=== PATIENT | female | born 1985 | race Caucasian/White ===

== ENCOUNTER 2020-02-11 13:47 | Emergency (ER) | payer OTHER ==
[~2020-02-11] VITALS: Ht 165.1 cm; Wt 64.0 kg
[2020-02-11] MEDS ORDERED: INHALER IH (13:52)
[2020-02-11] MEDS ORDERED: NORE1TAB4 PO (13:52)
[2020-02-11] MEDS ORDERED: HYDROCODONE/ACETAMINOPHEN 5-325 MG TABLET PO ONE (15:15)
[2020-02-11] MEDS ORDERED: IBUPROFEN 600 MG TABLET PO ONE (15:15)
[2020-02-11 16:20] VITALS: BP 135/88
== END 2020-02-11 17:25 | disposition home or self-care (01) ==
LOC: EMS 13:48
DX: S80.12XA Contusion of left lower leg, initial encounter (principal); S50.12XA Contusion of left forearm, initial encounter; V89.2XXA Person injured in unspecified motor-vehicle accident, traffic, initial encounter; Y93.89 Activity, other specified; Y92.488 Other paved roadways as the place of occurrence of the external cause; Y99.8 Other external cause status
CPT/HCPCS: 73562-TC; 73590-TC; Z7502; Z7610